=== PATIENT | male | born 2000 | race Caucasian/White ===

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

== ENCOUNTER → 2021-06-28 | Outpatient (CLI) | payer OTHER ==
[~2021-06-28] MED LIST: CASIRIVIMAB/IMDEVIMAB 600/600mg in IV NS TV=50 ML IV ONE
--- NOTE | 2021-06-28 09:24 | NUR ---
OUTPATIENT PT ARRIVES AT 0920 FOR REGENERON INFUSION. VS ASSESSED BP 127/79, HR 71, RR 18, SAO2 98%, T 98.7. IV INITIATED IN (L) HAND, 20 GA. AWAITING ARRIVAL OF REGENERON FROM PHARMACY.
--- NOTE | 2021-06-28 10:28 | NUR ---
OUTPATIENT INFUSION COMPLETE. IV SITE DISCONTINUED. PT WELL TOLERATED. DISCHARGES AMBULATORY TO FRONT DOOR.
== END | disposition home or self-care (01) ==
LOC: OPINF 08:55
PROVIDERS: ATTEND Family Medicine
DX: U07.1 COVID-19 (principal)
CPT/HCPCS: M0243; Q0243